=== PATIENT | female | born 1960 | race Caucasian/White ===

== ENCOUNTER 2020-01-16 08:47 | Emergency (ER) | payer OTHER ==
[2020-01-16] MEDS ORDERED: Ondansetron ODT 4 MG TAB ONE (10:23)
[2020-01-16] MEDS ORDERED: Acetaminophen 500 MG TAB ONE (10:23)
[2020-01-18 23:12] LABS: SARS-CoV-2 MS2 Positive; SARS-CoV-2 N Gene Negative; SARS-CoV-2 S Gene Negative; SARS-CoV-2 by NAA Not Detected (Not Detected); SARS-CoV-2 orf1ab Negative
== END 2020-01-16 10:35 | disposition home or self-care (01) ==
LOC: NAV ERS 08:47
DX: R05 Cough (principal); R11.0 Nausea; R53.83 Other fatigue; Z20.828 Contact with and (suspected) exposure to other viral communicable diseases; J44.9 Chronic obstructive pulmonary disease, unspecified; F41.9 Anxiety disorder, unspecified; F32.9 Major depressive disorder, single episode, unspecified; F17.210 Nicotine dependence, cigarettes, uncomplicated
CPT/HCPCS: 87635; 99283; Q0162; U0003